=== PATIENT | female | born 1980 | race Caucasian/White ===

== ENCOUNTER 2017-11-20 10:19 | Inpatient (IN) | payer OTHER ==
[2017-11-20 11:25] LABS: BASO % 0.5 % (0.0-1.0); EOS # 0.1 10^3/uL (0.0-0.50); EOS % 1.2 % (0.0-3.0); HEMATOCRIT 37.8 % (36.0-47.0); HEMOGLOBIN 12.7 g/dl (12.0-16.0); IMMATURE GRANULOCYTE % 0.3 % (0-3.0); LYMPH # 2.2 10^3/uL (1.5-4.5); LYMPH % 36.7 % (24.0-44.0); MEAN CORPUSCULAR HEMOGLOBIN 31.6 pg (27.0-33.0); MEAN CORPUSCULAR HGB CONC 33.6 g/dl (32.0-36.5); MONO # 0.5 10^3/uL (0.0-0.8); MONO % 8.3 % (0.0-5.0); NEUTROPHILS # 3.2 10^3/uL (1.8-7.7); PLATELET COUNT, AUTOMATED 217 10^3/uL (150-450); RED BLOOD COUNT 4.02 10^6/uL (4.00-5.40); RED CELL DISTRIBUTION WIDTH 15.9 % (11.5-14.5)
[2017-11-20 11:32] LABS: AMPHETAMINES LEVEL URINE NEGATIVE (NEGATIVE); BARBITURATES URINE NEGATIVE (NEGATIVE); BENZODIAZEPINES URINE NEGATIVE (NEGATIVE); CANNABINOIDS URINE NEGATIVE (NEGATIVE); COCAINE METABOLITE URINE NEGATIVE (NEGATIVE); METHADONE URINE NEGATIVE (NEGATIVE); OPIATES URINE NEGATIVE (NEGATIVE); PHENCYCLIDINE URINE NEGATIVE (NEGATIVE)
[2017-11-20 11:38] LABS: CONTROL LINE HCG INT CTR LINE PRESENT; HCG, SERUM QUALITATIVE NEGATIVE (NEGATIVE)
[2017-11-20 11:48] LABS: BEDSIDE GLUCOSE 100 MG/DL (70-105)
[2017-11-20 11:51] LABS: ACETAMINOPHEN LEVEL < 2.0 UG/ML (10.0-30.0); ALBUMIN 3.7 GM/DL (3.2-5.2); ALBUMIN/GLOBULIN RATIO 1.16 (1.00-1.93); ALKALINE PHOSPHATASE 63 U/L (45-117); ALT/SGPT 41 U/L (12-78); ANION GAP 12 MEQ/L (8-16); AST/SGOT 38 U/L (7-37); BILIRUBIN,DIRECT 0.2 MG/DL (0.0-0.2); BILIRUBIN,TOTAL 0.3 MG/DL (0.2-1.0); BLOOD UREA NITROGEN 7 MG/DL (7-18); CALCIUM LEVEL 8.4 MG/DL (8.5-10.1); CARBON DIOXIDE LEVEL 21 MEQ/L (21-32); CHLORIDE LEVEL 110 MEQ/L (98-107); CPK CREATINE PHOSPHOKINASE 147 U/L (26-192); CREATININE FOR GFR 0.68 MG/DL (0.55-1.30); ETHYL ALCOHOL (ETHANOL) 0.126 % (0.000-0.010); GLOMERULAR FILTRATION RATE > 60.0 (>60); GLUCOSE, FASTING 96 MG/DL (70-100); POTASSIUM SERUM 3.8 MEQ/L (3.5-5.1); SALICYLATE LEVEL 1.9 MG/DL (5.0-30.0); SODIUM LEVEL 143 MEQ/L (136-145); TOTAL PROTEIN 6.9 GM/DL (6.4-8.2)
[2017-11-20] MEDS ORDERED: MAALOX 30 ML SUSP *UDC PO (17:00)
[2017-11-20] MEDS ORDERED: MOM 30ML SUSPENSION UDC PO (17:00)
[2017-11-20] MEDS: chlordiazePOXIDE 25 MG CAP PO (18:06)
[2017-11-20] MEDS: ACETAMINOPHEN TAB 650MG DOSE (2X325MG) PO (21:39)
[2017-11-20] MEDS: traZODone 50 MG TAB PO (21:39)
[2017-11-21] MEDS: chlordiazePOXIDE 25 MG CAP PO (08:37)
[2017-11-21] MEDS: ACETAMINOPHEN TAB 650MG DOSE (2X325MG) PO ×2 (08:38→21:05)
[2017-11-21] MEDS: FOLIC ACID 1 MG TAB PO (09:19)
[2017-11-21] MEDS: THIAMINE 100 MG TAB PO (09:19)
[2017-11-21] MEDS: MULTIVITAMINS/MINERALS THERAP 1 TAB PO (09:21)
[2017-11-21] MEDS: LORazepam 1 MG TAB PO (14:12)
[2017-11-21] MEDS: ATENOLOL 25 MG TAB PO (14:14)
[2017-11-21] MEDS: tiZANidine 4 MG TAB PO (21:00)
[2017-11-21] MEDS: LORazepam 0.5 MG TAB PO (21:04)
[2017-11-21] MEDS: traZODone 50 MG TAB PO (22:15)
[2017-11-22 06:49] LABS: BASO % 0.3 % (0.0-1.0); EOS # 0.1 10^3/uL (0.0-0.50); EOS % 1.6 % (0.0-3.0); HEMATOCRIT 38.9 % (36.0-47.0); HEMOGLOBIN 12.8 g/dl (12.0-16.0); IMMATURE GRANULOCYTE % 0.2 % (0-3.0); LYMPH # 2.3 10^3/uL (1.5-4.5); LYMPH % 35.3 % (24.0-44.0); MEAN CORPUSCULAR HEMOGLOBIN 31.1 pg (27.0-33.0); MEAN CORPUSCULAR HGB CONC 32.9 g/dl (32.0-36.5); MEAN CORPUSCULAR VOLUME 94.4 fl (80.0-96.0); MONO # 0.8 10^3/uL (0.0-0.8); MONO % 11.9 % (0.0-5.0); NEUTROPHILS # 3.3 10^3/uL (1.8-7.7); NEUTROPHILS % 50.7 % (36.0-66.0); PLATELET COUNT, AUTOMATED 182 10^3/uL (150-450); RED BLOOD COUNT 4.12 10^6/uL (4.00-5.40); RED CELL DISTRIBUTION WIDTH 16.1 % (11.5-14.5); WHITE BLOOD COUNT 6.4 10^3/uL (4.0-10.0)
[2017-11-22] MEDS: THIAMINE 100 MG TAB PO (08:39)
[2017-11-22] MEDS: MULTIVITAMINS/MINERALS THERAP 1 TAB PO (08:39)
[2017-11-22] MEDS: tiZANidine 4 MG TAB PO ×3 (08:39→17:04)
[2017-11-22] MEDS: FOLIC ACID 1 MG TAB PO (08:39)
[2017-11-22] MEDS: ATENOLOL 50 MG TAB PO (08:40)
[2017-11-22] MEDS: LOSARTAN 50 MG TAB PO (08:40)
[2017-11-22] MEDS: LORazepam 0.5 MG TAB PO (11:46)
== END 2017-11-22 18:55 | disposition home or self-care (01) | DRG 751 ==
LOC: M PSY 11-21 08:53 → M ED 10:19 → M ED INP 16:57 → M PSY 19:10
DX: F33.2 Major depressive disorder, recurrent severe without psychotic features (principal); F19.94 Other psychoactive substance use, unspecified with psychoactive substance-induced mood disorder; F60.3 Borderline personality disorder; F10.10 Alcohol abuse, uncomplicated; Z79.899 Other long term (current) drug therapy

== ENCOUNTER → 2020-08-20 | Outpatient (CLI) | payer SELFPAY ==
[~2020-08-20] MED LIST: ACET300T52 PO; AMMO12CR7; ATEN50TA2 PO; BUSP10TA PO; BUSP1TAB PO; CETI10TA PO; CHLO25CA PO; CLON0.5T2 PO; FLUO10TA30 PO; FLUO20CA20 PO; FOLI1TAB11 PO; HYDR-3713 PO; LOSA100T50 PO; LOSA50TA88 PO; NAPR-885 PO; THIA100TA PO; TIZA4TAB4 PO; VITMTA PO; ZANA4CAP PO
== END ==
LOC: M LABCAHC 16:20
PROVIDERS: ATTEND Pediatrics
DX: Z11.59 Encounter for screening for other viral diseases (principal)